=== PATIENT | male | born 1935 | race Caucasian/White ===

== ENCOUNTER 2019-05-15 12:54 | Emergency (ER) | payer MEDICARE, OTHER ==
[2019-05-15 13:21] VITALS: BP 125/63
--- NOTE | 2019-05-15 13:24 | UC ---
Respiratory Complaint HPI - HPI Summary HPI Summary: cough x 5 weeks cough is dry , worse with exertion , better with rest. denies any chest pain , mild sob with exertion no nasal congestion , no sore throat, denies any fever, no chills concern about walking pneumonia - History of Current Complaint Chief Complaint: UCRespiratory Stated Complaint: WEAKNESS,COUGH,SOB Time Seen by Provider: 05/15/19 12:57 Hx Obtained From: Patient Onset/Duration: Gradual Onset, Lasting Weeks - 5, Still Present Timing: Constant Severity Initially: Moderate Severity Currently: Moderate Pain Intensity: 0 Character: Cough: Nonproductive Aggravating Factors: Exertion, Deep Breaths Alleviating Factors: Nothing Associated Signs And Symptoms: Positive: Dyspnea - mild. Negative: Fever, Chills, Pleuritic Chest Pain, Wheezing, Hemoptysis, Dizziness, Calf Pain, Calf Swelling, URI, Nasal Congestion - Allergies/Home Medications Allergies/Adverse Reactions: Allergies Allergy/AdvReac Type Severity Reaction Status Date / Time No Known Allergies Allergy Verified 05/15/19 13:00 Home Medications: Home Medications Acetaminophen [Acetaminophen Extra Strength] 1,000 mg PO Q6H PRN 05/15/19 [ History Confirmed 05/15/19] Atorvastatin* [Lipitor*] 40 mg PO DAILY 05/15/19 [History Confirmed 05/15/19] Benzonatate CAP* [Tessalon 100 MG CAP*] 100 mg PO TID #21 cap 05/15/19 [Rx] Lisinopril/Hydrochlorothiazide [Lisinopril-Hctz 20-12.5 mg Tab] 1 each PO DAILY 05/15/19 [History Confirmed 05/15/19] PMH/Surg Hx/FS Hx/Imm Hx Cardiovascular History: Hypertension - Surgical History Surgical History: Yes Surgery Procedure, Year, and Place: [facility], ~2011 - Family History Known Family History: Positive: Hypertension - Social History Alcohol Use: None Substance Use Type: None Smoking Status (MU): Former Smoker Length of Time of Smoking/Using Tobacco: 2-3 PPD x 20 Years When Did the Patient Quit Smoking/Using Tobacco: 1989 Review of Systems All Other Systems Reviewed And Are Negative: Yes Constitutional: Negative: Fever, Chills, Fatigue Skin: Positive: Negative. Negative: Rash Eyes: Positive: Negative ENT: Positive: Negative Respiratory: Positive: Cough Is Patient Immunocompromised?: No Physical Exam Triage Information Reviewed: Yes Appearance: Well-Appearing, No Pain Distress, Well-Nourished Vital Signs: Initial Vital Signs Temp 98.2 F 05/15/19 12:58 Pulse 63 05/15/19 12:58 Resp 18 05/15/19 12:58 BP 125/63 05/15/19 12:58 Pulse Ox 97 05/15/19 12:58 Vital Signs Reviewed: Yes Eye Exam: Normal Eyes: Positive: Conjunctiva Clear ENT: Positive: Normal ENT inspection, Hearing grossly normal, Pharynx normal Neck: Positive: Supple, Nontender, No Lymphadenopathy Respiratory: Positive: Chest non-tender, Lungs clear, Normal breath sounds, No respiratory distress. Negative: Crackles, Rhonchi, Wheezing Cardiovascular: Positive: RRR, No Murmur Abdominal Exam: Normal Skin Exam: Normal Respiratory Course/Dx - Differential Dx/Diagnosis Provider Diagnosis: Bronchitis Discharge ED - Sign-Out/Discharge Documenting (check all that apply): Patient Departure All imaging exams completed and their final reports reviewed: No Studies - Discharge Plan Condition: Stable Disposition: HOME Prescriptions: Benzonatate CAP* [Tessalon 100 MG CAP*] 100 mg PO TID #21 cap Patient Education Materials: Acute Bronchitis (ED) Referrals: No Primary Care Phys,NOPCP [Primary Care Provider] - If Needed Additional Instructions: clear lungs , normal vitals no need for antibiotics follow up as needed - Billing Disposition and Condition Condition: STABLE Disposition: Home
== END 2019-05-15 13:27 | disposition home or self-care (01) ==
LOC: UCCORT 12:54
DX: J40 Bronchitis, not specified as acute or chronic (principal); I10 Essential (primary) hypertension; Z79.899 Other long term (current) drug therapy; Z87.891 Personal history of nicotine dependence
CPT/HCPCS: 99212; G0463